=== PATIENT | male | born 1975 | race Caucasian/White ===

== ENCOUNTER 2017-02-03 11:19 | Emergency (ER) | payer SELFPAY ==
[~2017-02-03] VITALS: Ht 177.8 cm; Wt 90.9 kg
[2017-02-03] MEDS ORDERED: IBUPROFEN 800 MG TABLET PO ONE (12:30)
[2017-02-03] MEDS ORDERED: OXYMETAZOLINE HCL 0.05% 15 ML NASAL SPRAY NASAL ONE (12:30)
[2017-02-03 12:50] VITALS: BP 133/78
== END 2017-02-03 12:54 | disposition home or self-care (01) ==
LOC: EMS 11:20
DX: J32.9 Chronic sinusitis, unspecified (principal)
CPT/HCPCS: 99283

== ENCOUNTER 2017-12-20 11:55 | Emergency (ER) | payer MEDICAID ==
[~2017-12-20] VITALS: Ht 177.8 cm; Wt 90.0 kg
[2017-12-20] MEDS ORDERED: ALBU8HFA IH (12:06)
[2017-12-20] MEDS ORDERED: ACETAMINOPHEN 500 MG TABLET PO ONE (13:15)
[2017-12-20] MEDS ORDERED: DEXAMETHASONE SOD PHOS 4 MG/ML VIAL IM ONE (13:15)
[2017-12-20] MEDS ORDERED: ALBUTEROL SULFATE 2.5 MG/0.5 ML NEB SOLUTION NEB ONE (13:15)
[2017-12-20 13:59] LABS: INFLUENZA TYPE B NEGATIVE FOR TYPE B (NEGATIVE)
[2017-12-20 14:01] LABS: INFLUENZA TYPE A POSITIVE FOR TYPE A (NEGATIVE)
[2017-12-20] MEDS ORDERED: OSELTAMIVIR PHOSPHATE 75 MG CAPSULE PO ONE (14:30)
[2017-12-20 16:52] VITALS: BP 125/76
== END 2017-12-20 17:04 | disposition home or self-care (01) ==
LOC: EMS 11:56
DX: J11.1 Influenza due to unidentified influenza virus with other respiratory manifestations (principal); J40 Bronchitis, not specified as acute or chronic; J45.909 Unspecified asthma, uncomplicated
CPT/HCPCS: 71046; 87804; 94640; 96372; 99285; J1100; J7613